=== PATIENT | female | born 1995 | race Caucasian/White ===

== ENCOUNTER 2019-03-25 10:29 | Observation (INO) | payer OTHER ==
[2019-03-25] MEDS ORDERED: LIDOCAINE VISCOUS 2% SOLN 15 ML UDC ONE (11:34)
[2019-03-25] MEDS ORDERED: LIDOCAINE 1% W/EPI 1:100,000 MDV 50 ML VIAL ONE (11:34)
--- NOTE | 2019-03-25 12:56 | EDPHYS ---
Physician Documentation [facility] Name: Blossom Edwards Age: 23 yrs Sex: Female : 1995 Arrival Date: 03/25/2019 Time: 10:32 Bed 13 Private MD: ED Physician Long Zamora HPI: 03/25 12:50 This 23 yrs old Female presents to ER via Ambulatory with complaints of pm1 Possible Peritonsilar Abscess. 12:50 The patient presents with sore throat. The patient describes throat pain as constant, pm1 scratchy. Onset: The symptoms/episode began/occurred 1.5 week(s) ago. Severity of symptoms: in the emergency department the symptoms are actually worse, the past two days. Modifying factors: The patient has had contact with sick at gym, possibly strep. Associated signs and symptoms: Pertinent positives: earache, Sore throat Pertinent negatives fever. Seen at pediatric clinic on Wednesday and was prescribed clindamycin. Seen at [facility] today prior to arrival and given steroid shot at 1000. 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 12:50 Patient took a left over pack of azithromycin last Wednesday with onset of symptoms. [place] pm1 better by Wednesday but her sore throat returned this Wednesday. 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 - Social history:: Smoking status: Patient denies any tobacco usage or history of. - Ebola Screening: : Patient negative for fever greater than or equal to 101.5 degrees Fahrenheit, and additional compatible Ebola Virus Disease symptoms Patient denies exposure to infectious person Patient denies travel to an Ebola-affected area in the 21 days before illness onset No symptoms or risks identified at this time. ROS: 12:50 Constitutional: Negative for fever, chills, and weight loss, Eyes: Negative for injury, pm1 pain, redness, and discharge. 12:50 Neck: Negative for injury, pain, and swelling, Cardiovascular: Negative for chest pain, palpitations, and edema, Respiratory: Negative for shortness of breath, cough, wheezing, and pleuritic chest pain, Abdomen/GI: Negative for abdominal pain, nausea, vomiting, diarrhea, and constipation, Back: Negative for injury and pain, MS/Extremity: Negative for injury and deformity, Skin: Negative for injury, rash, and discoloration. 12:50 ENT: Positive for ear pain, sore throat, Negative for difficulty swallowing, difficulty handling secretions, hoarseness. Exam: 12:50 Constitutional: This is a well developed, well nourished patient who is awake, alert, pm1 and in no acute distress. Head/Face: Normocephalic, atraumatic. Eyes: Pupils equal round and reactive to light, extra-ocular motions intact. Lids and lashes normal. Conjunctiva and sclera are non-icteric and not injected. Cornea within normal limits. Periorbital areas with no swelling, redness, or edema. 12:50 Neck: Trachea midline, no thyromegaly or masses palpated, and no cervical lymphadenopathy. Supple, full range of motion without nuchal rigidity, or vertebral point tenderness. No Meningismus. Chest/axilla: Normal chest wall appearance and motion. Nontender with no deformity. No lesions are appreciated. Cardiovascular: Regular rate and rhythm with a normal S1 and S2. No gallops, murmurs, or rubs. Normal PMI, no JVD. No pulse deficits. Respiratory: Lungs have equal breath sounds bilaterally, clear to auscultation and percussion. No rales, rhonchi or wheezes noted. No increased work of breathing, no retractions or nasal flaring. Abdomen/GI: Soft, non-tender, with normal bowel sounds. No distension or tympany. No guarding or rebound. No evidence of tenderness throughout. Back: No spinal tenderness. No costovertebral tenderness. Full range of motion. Skin: Warm, dry with normal turgor. Normal color with no rashes, no lesions, and no evidence of cellulitis. MS/ Extremity: Pulses equal, no cyanosis. Neurovascular intact. Full, normal range of motion. 12:50 ENT: External ear(s): are unremarkable, Ear canal(s): are normal, TM's: are normal, Nose: is normal, Posterior pharynx: Tonsils: bilaterally enlarged, with erythema, swelling, peritonsillar mass, is noted on left, pooling of secretions, is not appreciated. 12:50 Neuro: Orientation: is normal, Motor: is normal, moves all fours. Vital Signs: 10:47 BP 134 / 81; Pulse 105; Resp 18; Temp 97.8; Pulse Ox 100% on R/A; Weight 69.85 kg; iw Height 5 ft. 4 in. (162.56 cm); Pain 10/10; 10:47 Body Mass Index 26.43 (69.85 kg, 162.56 cm) iw MDM: 10:54 Patient medically screened. pm1 11:09 Data reviewed: vital signs. Data interpreted: Pulse oximetry: on room air is 100 %. pm1 Interpretation: normal. 12:50 Physician consultation: Jessica Becerra MD Admit patient to observation under her pm1 service. Clindamycin 900 mg IV Q8hr, Dexamethasone 8mg IV Q8hr, Diet as tolerated, IV fluids, CBC, CMP. 12:54 Counseling: I had a detailed discussion with the patient and/or guardian regarding: the pm1 historical points, exam findings, and any diagnostic results supporting the discharge/admit diagnosis, the need for further work-up and treatment in the hospital. 13:04 ED course: Patient with steroid IM from clinic prior to arrival at 1000 today, pm1 therefore will start Dexamethasone 8mg at 1600. 03/25 12:56 Order name: CBC with Diff; Complete Time: 14:53 pm1 03/25 12:56 Order name: CMP; Complete Time: 14:34 pm1 03/25 14:49 Order name: CBC Smear Scan; Complete Time: 14:53 EDMS 03/25 15:41 Order name: Urine Dipstick--Ancillary (enter results) eb 03/25 15:41 Order name: Urine --Ancillary (enter results) eb 03/25 15:45 Order name: Urine --Ancillary; Complete Time: 15:48 EDMS 03/25 12:56 Order name: IV Saline Lock; Complete Time: 14:23 pm1 03/25 13:18 Order name: Urine Dipstick-Ancillary (obtain specimen); Complete Time: 14:20 pm1 03/25 13:18 Order name: Urine Test (obtain specimen); Complete Time: 14:20 pm1 03/25 15:45 Order name: Urine Dipstick-Ancillary; Complete Time: 15:48 EDMS Administered Medications: 12:10 Drug: Lidocaine-Epinephrine -1%: (1:100,000) 20 ml {Note: administered by Dr. Becerra.} jl7 Volume: 20 ml; Route: Infiltration; 12:47 Follow up: Response: No adverse reaction jl7 12:47 Not Given (not supplied): [place] - Benzocaine 20 % 1 application Mucous jl7 Membrane in affected area once 14:25 Drug: NS 0.9% 1000 ml Route: IV; Rate: 125 ml/hr; Site: right forearm; ls4 14:25 Drug: Clindamycin 900 mg Route: IVPB; Infused Over: 30 mins; Site: right forearm; ls4 14:55 Follow up: IV Status: Completed infusion; IV Intake: 50ml ls4 Disposition: 18:20 Co-signature as Attending Physician, Long Zamora MD. ma2 Disposition: 03/25/19 12:55 Hospitalization ordered by Jessica Becerra for Observation. Preliminary diagnosis is Peritonsillar abscess. - Bed requested for Telemetry/MedSurg (observation). - Status is Observation. ls4 - Condition is Stable. - Problem is new. - Symptoms have improved. UTI on Admission? No Signatures: Dispatcher [employer] EDMS Nasreen James RN Dalila Ya RN RN iw Marinas, Patrick, NP ENGINE LATHE SET UP OPERATOR TOOL pm1 Jerry Lane RN RN jl7 Long Zamora MD MD ma2 Shelbie Turk RN RN ls4 Corrections: (The following items were deleted from the chart) 15:05 12:55 Hospitalization Ordered by Jessica Becerra MD for Observation. Preliminary dw diagnosis is Peritonsillar abscess. Bed requested for Telemetry/MedSurg (observation). Status is Observation. Condition is Stable. Problem is new. Symptoms have improved. UTI on Admission? No. pm1 16:27 15:05 03/25/2019 12:55 Hospitalization Ordered by Jessica Becerra MD for Observation. ls4 Preliminary diagnosis is Peritonsillar abscess. Bed requested for Telemetry/MedSurg (observation). Status is Observation. Condition is Stable. Problem is new. Symptoms have improved. UTI on Admission? No. dw
--- NOTE | 2019-03-25 12:56 | ER ---
Nurse's Notes [facility] Name: Blossom Edwards Age: 23 yrs Sex: Female : 1995 Arrival Date: 03/25/2019 Time: 10:32 Bed 13 Private MD: Diagnosis: Peritonsillar abscess Presentation: 03/25 10:46 Presenting complaint: Patient states: possible peritonsillar abscess on left side was iw prescribed clindamycin and zpack previously , see at option and sent to ER today. Transition of care: patient was not received from another setting of care. Onset of symptoms was March 22, 2019. Risk Assessment: Do you want to hurt yourself or someone else? Patient reports no desire to harm self or others. Initial Sepsis Screen: Does the patient meet any 2 criteria? No. Patient's initial sepsis screen is negative. Does the patient have a suspected source of infection? No. Patient's initial sepsis screen is negative. Care prior to arrival: None. 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 - Social history:: Smoking status: Patient denies any tobacco usage or history of. - Ebola Screening: : Patient negative for fever greater than or equal to 101.5 degrees Fahrenheit, and additional compatible Ebola Virus Disease symptoms Patient denies exposure to infectious person Patient denies travel to an Ebola-affected area in the 21 days before illness onset No symptoms or risks identified at this time. Screenin:00 Abuse screen: Denies threats or abuse. Denies injuries from another. Nutritional jl7 screening: No deficits noted. Tuberculosis screening: No symptoms or risk factors identified. Fall Risk None identified. Assessment: 11:00 General: Appears in no apparent distress. uncomfortable, Behavior is calm, cooperative, jl7 appropriate for age. Pain: Complains of pain in throat Pain currently is 10 out of 10 on a pain scale. Neuro: Level of Consciousness is awake, alert, obeys commands, Oriented to person, place, time, situation. Cardiovascular: Patient's skin is warm and dry. Respiratory: Airway is patent Respiratory effort is even, unlabored, Respiratory pattern is regular, symmetrical. EENT: Oral mucosa is moist. Good dentition noted. Throat has enlarged tonsils on left. 12:00 Reassessment: Patient appears in no apparent distress at this time. No changes from jl7 previously documented assessment. Patient and/or family updated on plan of care and expected duration. Pain level reassessed. Patient is alert, oriented x 3, equal unlabored respirations, skin warm/dry/pink. 13:00 Reassessment: Patient appears in no apparent distress at this time. No changes from jl7 previously documented assessment. Patient and/or family updated on plan of care and expected duration. Pain level reassessed. Patient is alert, oriented x 3, equal unlabored respirations, skin warm/dry/pink. Vital Signs: 10:47 BP 134 / 81; Pulse 105; Resp 18; Temp 97.8; Pulse Ox 100% on R/A; Weight 69.85 kg; iw Height 5 ft. 4 in. (162.56 cm); Pain 10/10; 10:47 Body Mass Index 26.43 (69.85 kg, 162.56 cm) iw ED Course: 10:32 Patient arrived in ED. rg4 10:47 Triage completed. iw 10:47 Arm band placed on. iw 10:[address] RN is Primary Nurse. jl7 10:53 Obi Fraser NP is PHCP. pm1 10:54 Long Zamora MD is Attending Physician. pm1 11:00 Patient has correct armband on for positive identification. Bed in low position. Call jl7 light in reach. Side rails up X 1. 12:49 Assist provider with I \T\ D: of an abscess on left peritonsillar area Set up I\T\D tray. jl 7 Performed by Jessica Becerra MD Patient tolerated well. 12:54 Jessica Becerra MD is Hospitalizing Provider. pm1 13:30 Initial lab(s) drawn, by va, sent to lab. Urine collected: clean catch specimen, clear. jl7 Inserted saline lock: 22 gauge in right forearm, using aseptic technique. Blood collected. 14:21 Primary Nurse role handed off by Jerry Lane RN jl7 14:25 Shelbie Turk, RN is Primary Nurse. ls4 Administered Medications: 12:10 Drug: Lidocaine-Epinephrine -1%: (1:100,000) 20 ml {Note: administered by Dr. Becerra.} jl7 Volume: 20 ml; Route: Infiltration; 12:47 Follow up: Response: No adverse reaction jl7 12:47 Not Given (not supplied): [place] - Benzocaine 20 % 1 application Mucous jl7 Membrane in affected area once 14:25 Drug: NS 0.9% 1000 ml Route: IV; Rate: 125 ml/hr; Site: right forearm; ls4 14:25 Drug: Clindamycin 900 mg Route: IVPB; Infused Over: 30 mins; Site: right forearm; ls4 14:55 Follow up: IV Status: Completed infusion; IV Intake: 50ml ls4 Intake: 14:55 IV: 50ml; Total: 50ml. ls4 Outcome: 12:55 Decision to Hospitalize by Provider. pm1 16:27 Patient left the ED. ls4 Signatures: Dalila Lock, RN Obi Wright NP LOCKSTITCH FRONT MAKER pm1 Ciera Ramirez rg4 Jerry Lane RN RN jl7 Shelbie Turk RN RN ls4
[2019-03-25] MEDS ORDERED: CLINDAMYCIN 900MG/D5W 900 MG/50 ML IVPB IV ONE (13:58)
[2019-03-25] MEDS ORDERED: NA CHLORIDE 0.9% 1,000 ML ONE (13:58)
[2019-03-25 14:02] LABS: Absolute Lymphocytes (CBC) 0.5 K/uL (0.7-4.9); Basophils % 0.1 % (0-1.3); Hematocrit 41.4 % (36.0-45.0); Lymphocytes % 3.2 % (15.3-44.8); MPV 7.1 fL (7.6-11.3); RBC Red Blood Cell Count 4.71 M/uL (3.86-4.86)
[2019-03-25 14:21] LABS: ALT/SGPT 28 U/L (12-78); AST/SGOT 21 U/L (15-37); Albumin 3.8 g/dL (3.4-5.0); Alkaline Phosphatase 98 U/L (45-117); BUN Blood Urea Nitrogen 5 mg/dL (7-18); Bicarbonate 25 mmol/L (21-32); Bilirubin Total 0.6 mg/dL (0.2-1.0); Glucose Level 112 mg/dL (74-106); Potassium 3.9 mmol/L (3.5-5.1); Protein, Total 9.1 g/dL (6.4-8.2); Sodium Level 138 mmol/L (136-145)
[2019-03-25 14:49] LABS: Blood Morphology Comment NOT SEEN (NOT SEEN); Platelet Estimate ADEQ; Urine White Blood Cell Casts OK
[2019-03-25 15:44] LABS: Urine Blood 1+ (NEG); Urine Glucose NEGATIVE (NEG); Urine Protein 1+ (NEG); Urine pH 5.5 (5.0-7.0)
[2019-03-25] MEDS: NA CHLORIDE 0.9% 1,000 ML IV SCH ×2 (16:31→22:18)
[2019-03-25 16:33] VITALS: BMI 25.0
[2019-03-25] MEDS: dexAMETHasone 10 MG/ML VIAL IV SCH (17:52)
--- NOTE | 2019-03-25 19:53 | CON ---
Date of Consultation: 03/25/2019 Reason For Consultation: Peritonsillar abscess. Chief Complaint: Sore throat. History Of Present Illness: Blossom is a 23-year-old female who presents with a sore throat for appr oximately one and half weeks. She developed a sore throat and was seen by local provider and treated with azithromycin 5-day course and had initial clinical improvement. She then worsened and was seen at an urgent care center on March 22. She underwent testing including screening for mono and streptococcal tonsillitis. She was diagnosed with pharyngitis and treated with clindamycin 300 mg t.i.d. She completed 48 hours of this antibiotic therapy but continued to have significant se isabelle sore throat with left ear pain, difficulty swallowing due to pain and sense of swelling in the t hroat. At the time of her evaluation at Urgent Care, she was also treated with intramuscular steroid . She was evaluated by the emergency room today and the ENT consultation was requested for evaluatio n and treatment of her left possible peritonsillar abscess. Past Medical History: Anxiety and depression. Past Surgical History: section. Allergies: NONE. Current Medications: 1.Oral contraceptive pill. 2.Oral antidepressant. 3.Clindamycin. Social History: Nonsmoker. Her father works as a job coach at the [employer]. Th e patient is currently employed at [employer] in [place]. She is currently single. Review of Systems: Reviewed as documented by the emergency room earlier today and is unchanged. Physical Examination: GENERAL: The patient is in no acute distress. She has no stridor or stertor. She is tolerating her secretions. HEENT: She is atraumatic and normocephalic. Her head and face are symmetric. Her pupils are equal, round, and reactive. Her extraocular movements are intact. Her nares are patent without significan t nasal discharge. Her external ear is unremarkable. The left ear canal is clear and the tympanic m embrane appears intact without evidence of bulging, redness, or effusion. Her lips are unremarkable. She has mild trismus and her maximal incisal opening is approximately 2 cm. The left tonsil is dev iated medially. The uvula is slightly deviated toward the right. The right tonsil is large, but wilhelm s not appear to be significantly displaced. The soft palate does not appear erythematous or particul sukhdev bulging at this point in time. NECK: Soft and supple with mild tender lymphadenopathy, worse on the left. Her respirations are radha n and nonlabored. Laboratory Data: No current labs. No current imaging. Assessment: Tonsillitis, pharyngitis, possible peritonsillar abscess. Plan: Aspiration of peritonsillar abscess and placed under observation for failed outpatient therapy . We will treat patient with IV fluids, IV antibiotics, IV steroids, and reassess tomorrow morning. If the patient has significant clinical improvement, we will plan to discharge her at that time. If she is not significantly clinically improved, we will plan for imaging. I discussed with the emerge ncy room staff regarding her disposition and admission to my service. I recommended clear liquid t and advance as tolerated as no acute additional surgical intervention is planned. SUKHWINDER/PERRI Voice ID: [id number] Report ID: [id number]
--- NOTE | 2019-03-25 19:56 | OP ---
Date of Procedure: 03/25/2019 Surgeon: Jessica Becerra MD Clothes Drier Assembler: None. Procedure: Aspiration; peritonsillar abscess, left. Preoperative Diagnosis: Left peritonsillar abscess. Postoperative Diagnosis: Left peritonsillar abscess. Blood Loss: Nil. Indication For Procedure: Clinical concern for peritonsillar abscess versus advanced tonsillitis. Description Of Procedure: Verbal consent is obtained from the patient. The left soft palate and ant erior pillar are injected with 1% lidocaine with epinephrine, a total of approximately 1 mL is used a fter time for effect. A 1 cc syringe and a 23-gauge needle are used to aspirate around the peritonsi llar area. Four separate aspirations are made along the superior to inferior anterior tonsillar pill ar. A total of approximately 1 mL of pus is aspirated. The procedure is generally well tolerated. After aspiration, the patient is asked to gargle with ice water and bleeding is minimal. After sever al minutes, the patient's oropharynx is reexamined, and she is noted to have no significant worsening in swelling. No significant ecchymosis of the pharynx and appears hemodynamically stable. Complications: None. Specimens: None. Findings: Small peritonsillar abscess. Disposition: Plan for observational status for parental antibiotic therapy. SUKHWINDER/PERRI Voice ID: [id number] Report ID: [id number]
[2019-03-25 21:54] VITALS: O2SAT 99
[2019-03-26] MEDS: NA CHLORIDE 0.9% 1,000 ML IV SCH ×3 (00:31→08:31)
[2019-03-26] MEDS: CLINDAMYCIN PHOSPHATE 900 MG in NA CHLORIDE 0.9% 50 ML IV SCH ×2 (01:25→09:03)
[2019-03-26] MEDS: dexAMETHasone 10 MG/ML VIAL IV SCH ×2 (01:25→09:09)
[2019-03-26 05:32] LABS: Absolute Lymphocytes (CBC) 0.9 K/uL (0.7-4.9); Hematocrit 37.6 % (36.0-45.0); Lymphocytes % 5.8 % (15.3-44.8); MPV 7.3 fL (7.6-11.3); RBC Red Blood Cell Count 4.24 M/uL (3.86-4.86)
[2019-03-26 05:45] LABS: BUN Blood Urea Nitrogen 7 mg/dL (7-18); Bicarbonate 25 mmol/L (21-32); Glucose Level 145 mg/dL (74-106); Potassium 3.8 mmol/L (3.5-5.1); Sodium Level 140 mmol/L (136-145)
[2019-03-26 08:10] LABS: Blood Morphology Comment NOT SEEN (NOT SEEN); Platelet Estimate ADEQ
[2019-03-26 09:19] VITALS: BP 120/67; TEMP 97.4
--- NOTE | 2019-03-26 11:14 | P.PN ---
Subjective Date of Service: 03/26/19 Chief Complaint: sore throat, much improved Subjective: Improving (Patient with resolution of L ear pain, much improved voice and swallowing. Tolerating liquids. Subjective throat swelling is much improved) Physical Examination - Vital Signs Temperature: 97.4 F Blood Pressure: 120/67 Pulse: 94 Respirations: 17 Pulse Ox (%): 98 - Physical Exam General: Alert, In no apparent distress HEENT: Normocephalic, PERRLA, Mucous membr. moist/pink, Other (left tonsil with significant decrease in swelling, trismus much improved) Neck: Supple Respiratory: Normal air movement - Studies Medications List Reviewed: Yes Assessment And Plan - Current Problems (Diagnosis) (1) Peritonsillar abscess Current Visit: Yes Status: Acute - Plan d/c home today. Continue PO Clinda (has Rx at home). Diet as tolerated. FU with Dr Becerra in 1-2 weeks or sooner if worsening. Discharge Plan: Home
[2019-03-27] MEDS ORDERED: NORETHINDRONE A E ESTRADIOL PO SCH (09:00)
[2019-03-27] MEDS ORDERED: VENLAFAXINE HCL XR 37.5MG CAP PO SCH (09:00)
== END 2019-03-26 11:39 | disposition home or self-care (01) ==
LOC: ER 10:29 → ERHOLD 13:07 → 2ND 15:57
PROVIDERS: ADMIT Otolaryngology; ATTEND Otolaryngology
PROC: 0C9PXZX Drainage of Tonsils, External Approach, Diagnostic (ICD-10-PCS; principal; 2019-03-25)
DX: J36 Peritonsillar abscess (principal); F41.8 Other specified anxiety disorders
CPT/HCPCS: 42999; 96365; 85025 ×2; 80048; 36415; 81025; 81003; 80053; 99284; J1100 ×3; S0077; G0378 ×4; J7030 ×3

== ENCOUNTER 2019-03-27 00:29 | Inpatient (IN) | payer OTHER ==
[2019-03-27] MEDS ORDERED: ONDANSETRON 4 MG/2 ML VIAL ONE ×2 (01:32→13:55)
[2019-03-27] MEDS ORDERED: dexAMETHasone 10 MG/ML VIAL ONE ×2 (01:32→12:12)
[2019-03-27] MEDS ORDERED: MORPHINE 4 MG/ML SYR ONE (01:32)
[2019-03-27] MEDS ORDERED: ONDANSETRON 4 MG/2 ML VIAL IV PRN (01:34)
[2019-03-27] MEDS ORDERED: MORPHINE 2 MG/ML SYR IV PRN (01:34)
--- NOTE | 2019-03-27 01:48 | EDPHYS ---
Physician Documentation [facility] Name: Blossom Edwards Age: 23 yrs Sex: Female : 1995 Arrival Date: 03/27/2019 Time: 00:31 Bed 14 Private MD: ED Physician Roberto Bob HPI: 03/27 01:12 This 23 yrs old Female presents to ER via Ambulatory with complaints of jmm Swollen Tonsils. 01:12 The patient presents with sore throat. Onset: The symptoms/episode began/occurred 3 jmm day(s) ago. Modifying factors: The symptoms are alleviated by nothing, the symptoms are aggravated by nothing. Associated signs and symptoms: Pertinent negatives fever. This is a 23 year old female with no chronic medical conditions that presents to the ED with complaints of worsening sore throat. 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 Denies vomiting, denies shortness of breath. . 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 - Social history:: Smoking status: Patient denies any tobacco usage or history of. - Ebola Screening: : No symptoms or risks identified at this time. ROS: 01:12 Constitutional: Negative for fever, chills, and weight loss. jmm 01:12 Cardiovascular: Negative for chest pain, palpitations, and edema, Respiratory: Negative for shortness of breath, cough, wheezing, and pleuritic chest pain. 01:12 ENT: Positive for sore throat. 01:12 All other systems are negative. Exam: 01:12 Head/Face: atraumatic. Eyes: EOMI, no conjunctival erythema appreciated jmm 01:12 Neck: Trachea midline, Supple Chest/axilla: Normal chest wall appearance and motion. Cardiovascular: Regular rate and rhythm. No edema appreciated Respiratory: Normal respirations, no respiratory distress appreciated Abdomen/GI: Non distended, soft Back: Normal ROM Skin: General appearance color normal MS/ Extremity: Moves all extremities, no obvious deformities appreciated, no edema noted to the lower extremities Neuro: Awake and alert, normal gait Psych: Behavior is normal, Mood is normal, Patient is cooperative and pleasant 01:12 Constitutional: The patient appears alert, awake, uncomfortable. 01:12 ENT: Posterior pharynx: erythema, that is moderate, uvular shift noted. Vital Signs: 01:10 BP 134 / 77; Pulse 84; Resp 16 S; Temp 98.6(O); Pulse Ox 100% on R/A; Weight 69.85 kg bb (R); Height 5 ft. 4 in. (162.56 cm) (R); Pain 1010; 01:10 Body Mass Index 26.43 (69.85 kg, 162.56 cm) bb MDM: 01:12 Patient medically screened. [facility] 01:43 Data reviewed: vital signs, nurses notes. Counseling: I had a detailed discussion with alexander the patient and/or guardian regarding: the historical points, exam findings, and any diagnostic results supporting the discharge/admit diagnosis, the need for further work-up and treatment in the hospital. ED course: I discussed the patient with Dr. Lechuga whom accepted admission. I discussed the patient with Dr. Becerra whom will consult on admission. . 03/27 01:24 Order name: CBC with Diff; Complete Time: 02:39 [facility] 03/27 01:24 Order name: CMP; Complete Time: 02:11 [facility] 03/27 01:38 Order name: Basic Metabolic Panel [facility] 03/27 01:38 Order name: Basic Metabolic Panel [facility] 03/27 01:38 Order name: CBC with Automated Diff [facility] 03/27 01:38 Order name: CBC with Automated Diff [facility] 03/27 01:29 Order name: CT Soft Tissue Neck W/contr [facility] 03/27 02:36 Order name: Manual Differential; Complete Time: 02:39 [facility] 03/27 08:10 Order name: Procalcitonin [facility] 03/27 01:24 Order name: Saline Lock; Complete Time: 01:35 [facility] 03/27 01:38 Order name: CONS Pharmacy Consult [facility] 03/27 01:38 Order name: NPO EDMS Administered Medications: 01:42 Drug: morphine 4 mg Route: IVP; Site: right antecubital; 04:00 Follow up: Response: No adverse reaction; Pain is decreased; RASS: Alert and Calm (0) 01:44 Drug: Zofran 4 mg Route: IVP; Site: right antecubital; 04:00 Follow up: Response: No adverse reaction; Nausea is decreased 01:46 Drug: Decadron - Dexamethasone 10 mg Route: IVP; Site: right antecubital; 04:01 Follow up: Response: No adverse reaction 01:53 Drug: Clindamycin 900 mg Route: IVPB; Infused Over: 30 mins; Site: right antecubital; 02:35 Follow up: Response: No adverse reaction; IV Status: Completed infusion 04:00 Follow up: Response: No adverse reaction; IV Status: Completed infusion 03:33 Drug: fentaNYL (PF) 50 mcg Route: IVP; Site: right antecubital; 04:00 Follow up: Response: No adverse reaction; Pain is decreased; RASS: Alert and Calm (0) Disposition: 03/28 07:40 Co-signature as Attending Physician, Roberto Bob MD I agree with the assessment and lebron plan of care. Disposition: 03/27/19 01:47 Hospitalization ordered by Long Lechuga for Inpatient Admission. Preliminary diagnosis is Peritonsillar abscess. - Bed requested for Telemetry/MedSurg (Inpatient). - Status is Inpatient Admission. bp - Condition is Stable. - Problem is an acute exacerbation. - Symptoms have worsened. UTI on Admission? No Signatures: Dispatcher [employer] EDNJ Kavitha Garrett RN RN mw Anderson, Corey, MD MD cha Mickail, Joel, PA PA Radha Wise RN RN bb Habalo, Winsy wh Peltier, Brian RN RN bp Corrections: (The following items were deleted from the chart) 03/27 01:27 01:24 Urine Dipstick-Ancillary ordered. alexander birch 01:52 01:47 Hospitalization Ordered by Long Lechuga MD for Inpatient Admission. Preliminary diagnosis is Peritonsillar abscess. Bed requested for Telemetry/MedSurg (Inpatient). Status is Inpatient Admission. Condition is Stable. Problem is an acute exacerbation. Symptoms have worsened. UTI on Admission? No. marianam 06:48 01:52 03/27/2019 01:47 Hospitalization Ordered by Long Lechuga MD for Inpatient mw Admission. Preliminary diagnosis is Peritonsillar abscess. Bed requested for RUST ER HOLD. Status is Inpatient Admission. Condition is Stable. Problem is an acute exacerbation. Symptoms have worsened. UTI on Admission? No. mw 09:13 06:48 03/27/2019 01:47 Hospitalization Ordered by Long Lechuga MD for Inpatient bp Admission. Preliminary diagnosis is Peritonsillar abscess. Bed requested for Telemetry/MedSurg (Inpatient). Status is Inpatient Admission. Condition is Stable. Problem is an acute exacerbation. Symptoms have worsened. UTI on Admission? No. mw
--- NOTE | 2019-03-27 01:48 | ER ---
Nurse's Notes [facility] Name: Blossom Edwards Age: 23 yrs Sex: Female : 1995 Arrival Date: 03/27/2019 Time: 00:31 Bed 14 Private MD: Diagnosis: Peritonsillar abscess Presentation: 03/27 01:06 Presenting complaint: Patient states: she was discharged yesterday around noon for bb peritonsillar abscess Dr Cm partially drained it and told her the pain would not get any worse but pt states the pain is now 10 times worse than it was yesterday. Transition of care: patient was not received from another setting of care. Onset of symptoms was March 22, 2019. Risk Assessment: Do you want to hurt yourself or someone else? Patient reports no desire to harm self or others. Initial Sepsis Screen: Does the patient meet any 2 criteria? No. Patient's initial sepsis screen is negative. Does the patient have a suspected source of infection? No. Patient's initial sepsis screen is negative. Care prior to arrival: None. 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 - Social history:: Smoking status: Patient denies any tobacco usage or history of. - Ebola Screening: : No symptoms or risks identified at this time. Screenin:00 Abuse screen: Denies threats or abuse. Denies injuries from another. Nutritional wh screening: No deficits noted. Tuberculosis screening: No symptoms or risk factors identified. Fall Risk None identified. Assessment: 01:30 General: Appears in no apparent distress. Behavior is calm, cooperative, appropriate wh for age. Pain: Complains of pain in Sore throat. Neuro: Level of Consciousness is awake, alert, obeys commands, Oriented to person, place, time, situation, Appropriate for age. Cardiovascular: Heart tones S1 S2. Respiratory: Airway is patent Respiratory effort is even, unlabored, Respiratory pattern is regular, symmetrical, Breath sounds are clear bilaterally. GI: Abdomen is flat, non-distended. : No signs and/or symptoms were reported regarding the genitourinary system. EENT: Throat is reddened has enlarged tonsils. Derm: Skin is intact, is healthy with good turgor, Skin is pink, warm \T\ dry. normal. Musculoskeletal: Circulation, motion, and sensation intact. Vital Signs: 01:10 BP 134 / 77; Pulse 84; Resp 16 S; Temp 98.6(O); Pulse Ox 100% on R/A; Weight 69.85 kg bb (R); Height 5 ft. 4 in. (162.56 cm) (R); Pain 10/10; 01:10 Body Mass Index 26.43 (69.85 kg, 162.56 cm) ED Course: 00:31 Patient arrived in ED. cl3 01:08 Triage completed. bb 01:09 Johann Mcclendon PA is PHCP. jmm 01:09 Roberto Bob MD is Attending Physician. jmm 01:10 Arm band placed on Patient placed in an exam room, on a stretcher, on pulse oximetry. bb Family accompanied patient. 01:17 Candice Hui is Primary Nurse. 01:30 Patient has correct armband on for positive identification. Bed in low position. Call light in reach. Side rails up X 1. Pulse ox on. NIBP on. 01:31 Inserted saline lock: 20 gauge in right antecubital area, using aseptic technique. mw2 Blood collected. 01:47 Long Lechuga MD is Hospitalizing Provider. [facility] 02:30 No provider procedures requiring assistance completed. Patient admitted, IV remains in place. Administered Medications: 01:42 Drug: morphine 4 mg Route: IVP; Site: right antecubital; 04:00 Follow up: Response: No adverse reaction; Pain is decreased; RASS: Alert and Calm (0) 01:44 Drug: Zofran 4 mg Route: IVP; Site: right antecubital; 04:00 Follow up: Response: No adverse reaction; Nausea is decreased 01:46 Drug: Decadron - Dexamethasone 10 mg Route: IVP; Site: right antecubital; 04:01 Follow up: Response: No adverse reaction 01:53 Drug: Clindamycin 900 mg Route: IVPB; Infused Over: 30 mins; Site: right antecubital; 02:35 Follow up: Response: No adverse reaction; IV Status: Completed infusion 04:00 Follow up: Response: No adverse reaction; IV Status: Completed infusion 03:33 Drug: fentaNYL (PF) 50 mcg Route: IVP; Site: right antecubital; 04:00 Follow up: Response: No adverse reaction; Pain is decreased; RASS: Alert and Calm (0) Outcome: 01:47 Decision to Hospitalize by Provider. alexander 02:30 Admitted to ER Hold. Please see [facility] for further documentation. 02:30 Condition: stable 02:30 Instructed on the need for admit. 09:13 Patient left the ED. bp Signatures: Johann Mcclendon PA PA jmm Ballard, Brenda, RN RN Candice Jasso Joel Harden RN RN Gifty Adamson mw2 Edward Solano cl3
[2019-03-27] MEDS ORDERED: CLINDAMYCIN 900MG/D5W 900 MG/50 ML IVPB IV ONE (01:52)
[2019-03-27 01:55] LABS: Absolute Lymphocytes (CBC) 1.8 K/uL (0.7-4.9); Basophils % 0.1 % (0-1.3); Lymphocytes % 7.3 % (15.3-44.8); MPV 7.6 fL (7.6-11.3); RBC Red Blood Cell Count 4.38 M/uL (3.86-4.86)
[2019-03-27] MEDS ORDERED: Levofloxacin500mg IV 500 MG/100 ML BAG IV SCH (02:00)
[2019-03-27] MEDS: NA CHLORIDE 0.9% 1,000 ML IV SCH ×3 (02:00→22:59)
[2019-03-27 02:06] LABS: ALT/SGPT 24 U/L (12-78); AST/SGOT 16 U/L (15-37); Albumin 3.4 g/dL (3.4-5.0); Alkaline Phosphatase 90 U/L (45-117); BUN Blood Urea Nitrogen 7 mg/dL (7-18); Bicarbonate 27 mmol/L (21-32); Bilirubin Total 0.2 mg/dL (0.2-1.0); Glucose Level 110 mg/dL (74-106); Potassium 3.3 mmol/L (3.5-5.1); Protein, Total 8.3 g/dL (6.4-8.2); Sodium Level 144 mmol/L (136-145)
[2019-03-27 02:35] LABS: Blood Morphology Comment NOT SEEN (NOT SEEN); Platelet Estimate ADEQ
[2019-03-27] MEDS ORDERED: FENTANYL CITR 100 MCG/2 ML ONE ×2 (03:28→12:12)
[2019-03-27] MEDS ORDERED: NA CHLORIDE 0.9% 1,000 ML ONE ×2 (03:28→14:12)
[2019-03-27] MEDS ORDERED: Levofloxacin500mg IV 500 MG/100 ML BAG IV ONE (03:28)
[2019-03-27] MEDS ORDERED: NA CHLORIDE 0.9% 100 ML IV ONE (05:26)
[2019-03-27] MEDS ORDERED: AMPICILLIN/SULBACTAM 3GM/VIAL ONE (05:26)
[2019-03-27] MEDS: AMPICILLIN/SULBACT 3 GM in NA CHLORIDE 0.9% 100 ML IVPB SCH ×4 (05:28→22:58)
--- NOTE | 2019-03-27 05:54 | P.HP ---
Certification for Inpatient Patient admitted to: Inpatient With expected LOS: >2 Midnights Patient will require the following post-hospital care: None Practitioner: I am a practitioner with admitting privileges, knowledge of patient current condition, hospital course, and medical plan of care. Services: Services provided to patient in accordance with Admission requirements found in Title 42 Section 412.3 of the Code of Federal Regulations Patient History Date of Service: 03/27/19 Reason for admission: Tonsillar abscess History of Present Illness: Patient is a 23-year-old female who was seen in the hospital for a tonsillar abscess a couple of days ago. She apparently had an incision and debridement. She was discharged home on IV antibiotics. She comes back into the hospital with feeling worse. She continues to have a 2cm x 2cm x 2cm tonsillar abscess. Patient had retropharyngeal extension of the abscess. Airway is displaced to the right. ENT will be notified. They have accepted patient on consultation. Will contact them in a.m.. Keep patient NPO. Anticipate patient going to the OR in a.m.. Continue with broad-spectrum IV antibiotic coverage. She may need to go to the intensive care unit depending on how she is doing hemodynamically. Also will need to continue monitoring respiratory status very cautiously. Allergies No Known Allergies Allergy (Verified 03/27/19 03:37) Home Medications: Norethindrone A-E Estradiol [Gildess] 1 each PO DAILY 03/25/19 Venlafaxine HCl [Venlafaxine HCl ER] 37.5 mg PO DAILY 03/25/19 - Past Medical/Surgical History Has patient received pneumonia vaccine in the past: No Diabetic: No -: Anxiety -: On control pills -: CSection 2012 - Family History Mother Medical History: Hypertension Father Medical History: Hypertension - Social History Smoking Status: Never smoker Alcohol use: Yes CD- Drugs: No Caffeine use: No Place of Residence: Home Review of Systems 10-point ROS is otherwise unremarkable Physical Examination - Vital Signs Temperature: 98.4 F Blood Pressure: 118/68 Pulse: 71 Respirations: 18 Pulse Ox (%): 98 - Physical Exam General: Alert, In no apparent distress, Oriented x3 HEENT: Atraumatic, PERRLA, Mucous membr. moist/pink, EOMI, Sclerae nonicteric Neck: Supple, 2+ carotid pulse no bruit, Other (Tenderness in the anterior cervical lymphadenopathy region), Without JVD or thyroid abnormality, LAD Respiratory: Clear to auscultation bilaterally, Normal air movement Cardiovascular: Regular rate/rhythm, Normal S1 S2, No murmurs Gastrointestinal: Normal bowel sounds, Soft and benign, Non-distended, No tenderness Musculoskeletal: No clubbing, No swelling, No tenderness Integumentary: No rashes Neurological: Normal gait, Normal speech, Normal strength at 5/5 x4 extr, Normal tone, Cranial nerves 3-12 intact, Normal affect Lymphatics: No axilla or inguinal lymphadenopathy - Studies Laboratory Data (last 24 hrs) 03/27/19 01:33: Sodium 144, Potassium 3.3 L, BUN 7, Creatinine 0.77, Glucose 110 H, Total Bilirubin 0.2, AST 16, ALT 24, Alkaline Phosphatase 90 03/27/19 01:33: WBC 24.2 H* D, Hgb 13.3, Hct 39.0, Plt Count 374 Assessment & Plan - Problems (Diagnosis) (1) Retropharyngeal and parapharyngeal abscess Current Visit: Yes Status: Acute (2) Peritonsillar abscess Current Visit: No Status: Acute - Plan 1. Continue with broad IV antibiotic 2. Continue with monitoring airway and hemodynamic 3. ENT consultation 4. Gentle IV hydration 5. Monitor CBC 6. Strict blood sugar monitoring 7. Pain control 8. GI and DVT prophylaxis Discharge Plan: Home Plan to discharge in: Greater than 2 days - Advance Directives Does patient have a Living Will: No Does patient have a Durable POA for Healthcare: No - Code Status/Comfort Care Code Status Assessed: Yes Code Status: Full Code Critical Care: No Time Spent Managing PTS Care (In Minutes): 50
[2019-03-27] MEDS ORDERED: VANCOMYCIN 1.5 GM in NA CHLORIDE 0.9% 500 ML IVPB SCH (06:00)
[2019-03-27] MEDS ORDERED: VANCOMYCIN 1 GM/VIAL ONE (06:23)
[2019-03-27] MEDS ORDERED: NA CHLORIDE 0.9% 250 ML ONE (06:24)
--- NOTE | 2019-03-27 07:56 | P.CNS ---
Date of Consult: 03/27/19 Patient know to me from earlier this weekend. She presented on Wednesday and I performed a needle aspiration of the L peritonsillar abscess (about 1ml purulence obtained) and placed her under obs with IV Clinda and Dex. By Wednesday morning, her swelling, pain and swallowing were much improved and she was discharged home to resume her PO Clindamycin. She did well until about 8PM and developed recurrence and worsening of the pain and swelling in the throat and left ear pain. She came to the ER and the staff contacted me at approximately 1 :30AM. Due to worsening, I recommended CT neck with contrast. NAD, VSS, sleeping. Moderately muffled/hot potato voice, worse compared to yesterday morning. Mild trismus, L OP edema and medialization of the left tonsil. CT images and radiologist report are reviewed and show a 2cm L peritonsillary abscess. WBC with worsening leukocytosis compared to yester and Saturdays values Assessment: left peritonsillar abscess, recurrent vs persistent. Plan: Discussed with patient regarding need for formal I&D rather than needle aspiration in order to ensure complete drainage. She feels she would not tolerate this awake given the degree of discomfort from the needle aspiration. Will plan for proceedure under GA today around lunchtime due to OR availability.
[2019-03-27] MEDS ORDERED: VANCOMYCIN 1.5 GM in NA CHLORIDE 0.9% 500 ML IVPB ONE (08:00)
[2019-03-27 09:50] VITALS: BMI 25.8
--- NOTE | 2019-03-27 12:09 | P.PN ---
Subjective Date of Service: 03/27/19 Primary Care Provider: unknown Chief Complaint: Tonsillar abscess Subjective: Doing well Physical Examination - Vital Signs Temperature: 97.5 F Blood Pressure: 114/83 Pulse: 68 Respirations: 15 Pulse Ox (%): 97 - Physical Exam General: Alert, In no apparent distress, Cooperative HEENT: Atraumatic Neck: Supple Respiratory: Clear to auscultation bilaterally, Normal air movement Cardiovascular: Normal pulses, Regular rate/rhythm - Studies Laboratory Data (last 24 hrs) 03/27/19 01:33: Sodium 144, Potassium 3.3 L, BUN 7, Creatinine 0.77, Glucose 110 H, Total Bilirubin 0.2, AST 16, ALT 24, Alkaline Phosphatase 90 03/27/19 01:33: WBC 24.2 H* D, Hgb 13.3, Hct 39.0, Plt Count 374 Medications List Reviewed: Yes Assessment & Plan Discharge Plan: Home Plan to discharge in: 48 Hours Physician Review Additional Text: Impression: Left peritonsillar abscess, recurrent Plan: Continue with IV antibiotics. Spoke to ENT. ENT plans for surgery for today. Anticipate improvement in the next 48 hours. Time Spent Managing Pts Care (In Minutes): 55
[2019-03-27] MEDS ORDERED: TRAMADOL HCL 50 MG TAB PO PRN (12:10)
[2019-03-27] MEDS ORDERED: MIDAZOLAM HCL 2 MG/2 ML INJ ONE (12:12)
[2019-03-27] MEDS ORDERED: propofoL 200 MG/20 ML VIAL IV ONE (12:12)
[2019-03-27] MEDS ORDERED: LIDOCAINE 2% MPF 5 ML VIAL ONE (12:12)
[2019-03-27] MEDS ORDERED: ROCURONIUM 50 MG/5 ML VIAL IV ONE (12:13)
[2019-03-27] MEDS ORDERED: BUPIVACA 0.5%/EPI 0.0005%/PF 10 ML VIAL ONE (12:23)
--- NOTE | 2019-03-27 12:24 | RAD REPORT ---
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 Coronal and sagittal reformatted images were provided. This exam was performed according to our departmental dose-optimization program, which includes autom ated exposure control, adjustment of the mA and/or kV according to patient size and/or use of iterati ve reconstruction technique. COMPARISON: None available for comparison FINDINGS: Oropharynx: Asymmetric enlargement of the left palatine tonsil. Peripherally thickened and enhancing collection measuring 2.5 x 2 x 2.1 cm. Adjacent left parapharyngeal edema. The airway is m ildly effaced and displaced to the right. Hypopharynx: Unremarkable Larynx: Unremarkable. Normal epiglottis. Trachea: Unremarkable Retropharyngeal space: Left retropharyngeal edema. Submandibular/parotid glands: Unremarkable. Normal in size. Thyroid: Unremarkable Bones/joints: Unremarkable Soft tissues: Unremarkable Vessels: Unremarkable Lymph nodes: Enlarged cervical lymph nodes on the left measuring up to 16 mm in short axis. Paranasal sinuses: Well-aerated Mastoid air cells: Well-aerated Lung apices: Unremarkable as visualized Mediastinum: Unremarkable as visualized IMPRESSION: Left palatine tonsillar abscess measuring approximately 2.5 x 2 x 2.1 cm. Adjacent left parapharyngeal edema with retropharyngeal extension. The airway is mildly effaced and displaced to th e right. THIS REPORT CONTAINS FINDINGS THAT MAY BE CRITICAL TO PATIENT CARE: The findings were verbally discu ssed via telephone conference with Dr. Bob on 03/27/2019 3:35 AM MISSILE PAD MECHANIC. The results were acknowledg ed and understood. Electronically signed by: Jordi Briseno MD 03/27/2019 3:36 AM MISSILE PAD MECHANIC Due to temporary technical issues with the PACS/Fluency reporting system, reports are being signed by the in house radiologist as a courtesy to ensure prompt reporting. The interpreting radiologist is maciej saravialy responsible for the content of the report.
--- NOTE | 2019-03-27 13:04 | P.BOP ---
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
[2019-03-27] MEDS: HYDROMORPHONE HCL 2 MG/ML inj ONE ×4 (13:23→13:55)
[2019-03-27] MEDS: MEPERIDINE HCL 25 MG/0.5 ML ONE ×2 (13:35→13:40)
[2019-03-27] MEDS: HYDROCODONE/APAP 7.5/325 MG TAB PO PRN (17:46)
[2019-03-27] MEDS ORDERED: VANCOMYCIN 1.25 GM in NA CHLORIDE 0.9% 250 ML IVPB SCH (18:00)
[2019-03-27] MEDS ORDERED: DIPHENHYDRAMINE 25 MG TAB/CAP PO ONE (22:34)
[2019-03-27] MEDS: FAMOTIDINE 20 MG TAB PO SCH (22:58)
--- NOTE | 2019-03-27 23:15 | OP ---
Date of Procedure: 03/27/2019 Surgeon: Jessica Becerra MD Dock Associate: None. Preoperative Diagnosis: Left peritonsillar abscess. Postoperative Diagnosis: Left peritonsillar abscess. Procedure: Incision and drainage of left peritonsillar abscess under general anesthesia. Indication For Procedure: Ms. Edwards presented with recurrent or persistent sore throat, ear pain and dysphagia and odynophagia despite outpatient antibiotics. She underwent a needle aspiration of her left peritonsillar abscess on the 25 of March and did well initially, but approximately 36 hours after the aspiration, her symptoms worsened, and she came back to the emergency room. A CT scan of the neck was performed demonstrating a left peritonsillar abscess. The risks, benefits, alternatives to the procedure were discussed with the patient including the need for formal incision rather than pure aspiration. The patient did not feel she would tolerate this under local anesthetic at the bedside and opted for procedure under general anesthesia. Description Of Procedure: Patient was brought to the operating room. She was placed under general anesthesia via oral endotracheal tube. The head of bed was turned 90 degrees. The neck was extended and a head drape was applied. The McIvor mouth gag was placed for exposure of the oropharynx. Both tonsils were noted to be relatively large. There was some moderate tonsillitis and tonsil stones, as well as swelling and bulging of the left soft palate. A 15- blade scalpel was used to make a 1 cm incision in the anterior tonsillar pillar just lateral to the tonsil. Direct pressure was applied to the incision for control of bleeding. The tonsil clamp was then used to explore into the deep lateral inferior and medial aspects without any evidence of purulence. Finally , the tonsil clamp was directed superiorly and the abscess cavity was entered bluntly with the tonsil clamp, resulting in significant purulent drainage into the oral cavity. This was collected for an aerobic and anaerobic culture to further direct antibiotic therapy. The abscess cavity was then probed using the tonsil clamp to break up any septations and thoroughly irrigated with approximately 100 cc of cold sterile saline. A small amount of electrocautery was used at the superior aspect where there was oozing from the mucosal edge. Direct pressure was applied to aid in control of oozing from the severely inflamed tissues. The area around the incision was then injected with 0.5% Marcaine with epinephrine to aid in postoperative pain control. After several aliquots of irrigation, the irrigation fluid ran clear and there was no further evidence of additional abscess pocket. Direct pressure was applied to the incision for several minutes to control bleeding and the oropharynx was thoroughly suctioned. An orogastric tube was passed to the stomach for removal of contents, which was minimal. A red rubber catheter was then passed through the bilateral nasal cavity for suctioning of any blood, pus, and mucus from the nasopharynx. The McIvor mouth gag was then released from suspension and removed. There was no evidence of damage to the lips tongue teeth, and the mandible was mobile. The patient was then returned to care of anesthesia for awakening and extubation in the operating room, which proceeded without difficulty. Complications: None. Disposition: Due to failed medical therapy, it is recommended the patient remain in the hospital for 24-48 hours in order to administer parental antibiotics and ensure clinical improvement prior to discharge. SUKHWINDER/PERRI Voice ID: [id number] Report ID: [id number] JEANIE
[2019-03-28] MEDS: AMPICILLIN/SULBACT 3 GM in NA CHLORIDE 0.9% 100 ML IVPB SCH ×4 (06:00→23:31)
[2019-03-28 06:27] LABS: BUN Blood Urea Nitrogen 6 mg/dL (7-18); Bicarbonate 28 mmol/L (21-32); Glucose Level 83 mg/dL (74-106); Magnesium 2.1 mg/dL (1.8-2.4); Sodium Level 141 mmol/L (136-145)
[2019-03-28 06:29] LABS: Basophils % 0.1 % (0-1.3); Hematocrit 33.5 % (36.0-45.0); Lymphocytes % 17.1 % (15.3-44.8); MPV 7.5 fL (7.6-11.3); RBC Red Blood Cell Count 3.74 M/uL (3.86-4.86)
[2019-03-28] MEDS: HYDROCODONE/APAP 7.5/325 MG TAB PO PRN ×2 (07:27→13:08)
[2019-03-28] MEDS: FAMOTIDINE 20 MG TAB PO SCH ×2 (12:02→20:43)
[2019-03-28] MEDS ORDERED: DIPHENHYDRAMINE 25 MG TAB/CAP PO PRN (16:06)
--- NOTE | 2019-03-28 16:08 | P.PN ---
Subjective Date of Service: 03/28/19 Primary Care Provider: unknown Chief Complaint: Tonsillar abscess Subjective: Improving, Other (Patient did report some itching last night after taking pain medication.) Physical Examination - Vital Signs Temperature: 97.1 F Blood Pressure: 114/81 Pulse: 59 Respirations: 15 Pulse Ox (%): 97 - Physical Exam General: Alert HEENT: Other (Erythema to the left pharyngeal area still slightly edematous but improved) Neck: Supple Respiratory: Clear to auscultation bilaterally, Normal air movement Cardiovascular: Normal pulses, Regular rate/rhythm Neurological: Normal speech, Normal strength at 5/5 x4 extr, Normal tone - Studies Medications List Reviewed: Yes Assessment & Plan Discharge Plan: Home Plan to discharge in: 24 Hours Physician Review Additional Text: Impression: Left peritonsillar abscess, recurrent status post I and D Itching likely related to medication Plan: Continue with IV antibiotic. Patient reported itching last night and again today after pain medication. Will discontinue all pain medication. Will provide ibuprofen or Tylenol as needed for pain. Will need to monitor make sure this is not related to antibiotic. Will continue monitor Overnite. Encourage ambulation. Will provide DVT prophylaxis-Lovenox. Will give Pepcid and Benadryl at this time. Spoke with ENT. Anticipate discharge tomorrow. Culture results still negative. Time Spent Managing Pts Care (In Minutes): 55
[2019-03-28] MEDS: ENOXAPARIN 40 MG/0.4 ML SQ SCH (17:00)
[2019-03-28] MEDS: IBUPROFEN 400 MG TAB PO PRN (17:28)
[2019-03-28 23:17] VITALS: O2SAT 98
[2019-03-29] MEDS: AMPICILLIN/SULBACT 3 GM in NA CHLORIDE 0.9% 100 ML IVPB SCH ×3 (05:47→17:07)
[2019-03-29] MEDS: IBUPROFEN 400 MG TAB PO PRN ×3 (05:54→20:42)
[2019-03-29 06:03] LABS: Absolute Lymphocytes (CBC) 2.3 K/uL (0.7-4.9); Basophils % 0.1 % (0-1.3); Hematocrit 35.4 % (36.0-45.0); Lymphocytes % 22.3 % (15.3-44.8); MPV 7.4 fL (7.6-11.3); RBC Red Blood Cell Count 3.95 M/uL (3.86-4.86)
[2019-03-29 06:20] LABS: BUN Blood Urea Nitrogen 7 mg/dL (7-18); Bicarbonate 30 mmol/L (21-32); Glucose Level 83 mg/dL (74-106); Magnesium 2.1 mg/dL (1.8-2.4); Potassium 3.6 mmol/L (3.5-5.1); Sodium Level 141 mmol/L (136-145)
[2019-03-29] MEDS: FAMOTIDINE 20 MG TAB PO SCH ×2 (08:10→20:43)
[2019-03-29] MEDS: ACETAMINOPHEN 500 MG TAB PO PRN ×2 (08:11→16:07)
--- NOTE | 2019-03-29 11:34 | P.PN ---
Subjective Date of Service: 03/29/19 Primary Care Provider: unknown Chief Complaint: Tonsillar abscess Subjective: Other (This morning she had more pain to the will pharyngeal area. ENT evaluated patient and did further debridement at bedside.) Physical Examination - Vital Signs Temperature: 97.0 F Blood Pressure: 115/83 Pulse: 76 Respirations: 15 Pulse Ox (%): 98 - Physical Exam General: Alert HEENT: Atraumatic, Other (Still with erythema and edema to Left pharynx) Neck: Supple Respiratory: Clear to auscultation bilaterally, Normal air movement - Studies Medications List Reviewed: Yes Assessment & Plan Discharge Plan: Home Plan to discharge in: 48 Hours Physician Review Additional Text: Impression: Left peritonsillar abscess, recurrent status post I and D Itching likely related to medication Plan: Left peritonsillar abscess, recurrent status post I and D: Patient had further debridement at bedside today. More drainage and pus removed. Case discussed at length with ENT. So for cultures negative. White count improved. Continue with IV Unasyn. ENT plans to re-evaluate over the next 1-2 days with recurrent possible bedside debridements. Anticipate discharge likely within 2 days but will need ENT clearance. I will turn the service over to the hospital seen tomorrow. I will go over the plan of care with them. Itching likely related to medication: No more itching noted. This was likely related to pain medication. This has been discontinued. Time Spent Managing Pts Care (In Minutes): 55
[2019-03-29] MEDS: ENOXAPARIN 40 MG/0.4 ML SQ SCH (16:02)
[2019-03-30] MEDS: AMPICILLIN/SULBACT 3 GM in NA CHLORIDE 0.9% 100 ML IVPB SCH ×2 (00:48→05:11)
[2019-03-30 04:38] LABS: Absolute Lymphocytes (CBC) 2.5 K/uL (0.7-4.9); Basophils % 0.2 % (0-1.3); Hematocrit 38.1 % (36.0-45.0); Lymphocytes % 33.3 % (15.3-44.8); MPV 7.6 fL (7.6-11.3); RBC Red Blood Cell Count 4.31 M/uL (3.86-4.86)
[2019-03-30 04:48] LABS: BUN Blood Urea Nitrogen 8 mg/dL (7-18); Bicarbonate 30 mmol/L (21-32); Glucose Level 88 mg/dL (74-106); Magnesium 2.3 mg/dL (1.8-2.4); Potassium 3.6 mmol/L (3.5-5.1); Sodium Level 141 mmol/L (136-145)
[2019-03-30 05:30] VITALS: TEMP 97.1
[2019-03-30 08:17] VITALS: BP 118/78
[2019-03-30] MEDS: FAMOTIDINE 20 MG TAB PO SCH (08:46)
[2019-03-30] MEDS: IBUPROFEN 400 MG TAB PO PRN (08:46)
--- NOTE | 2019-03-30 11:07 | P.DS ---
Admission Date: 03/27/19 Discharge Date: 03/30/19 Primary Care Provider: unknown Disposition: ROUTINE DISCHARGE Reason for Admission: Tonsillar abscess Consultations: ENT - Problems (1) Peritonsillar abscess Status: Acute (2) Retropharyngeal and parapharyngeal abscess Status: Acute Brief History of Present Illness: Patient is a 23-year-old female who was seen in the hospital for a tonsillar abscess a couple of days ago. She apparently had an incision and debridement. She was discharged home on IV antibiotics. She comes back into the hospital with feeling worse. She continues to have a 2cm x 2cm x 2cm tonsillar abscess. Patient had retropharyngeal extension of the abscess. Airway is displaced to the right. ENT will be notified. They have accepted patient on consultation. Will contact them in a.m.. Keep patient NPO. Anticipate patient going to the OR in a.m.. Continue with broad-spectrum IV antibiotic coverage. She may need to go to the intensive care unit depending on how she is doing hemodynamically. Also will need to continue monitoring respiratory status very cautiously. Hospital Course: ENT was consulted on admission due to significant swelling and abscess. She underwent I&D of peritonsillar abscess. Culture was without any growth, probably collected after initiation of antibiotics. Patient's symptoms did improve and she remained hemodynamically stable for discharge. She has been discharged on oral antibiotics, to follow up with ENT in 2 weeks. Vital Signs/Physical Exam: Temp Pulse Resp BP Pulse Ox 97.1 F 80 16 118/78 99 03/30/19 08:00 03/30/19 08:00 03/30/19 08:00 03/30/19 08:00 03/30/19 08:00 General: Alert, In no apparent distress HEENT: Atraumatic, PERRLA, Other (Mild pharyngeal erythema), EOMI Neck: Supple, JVD not distended Respiratory: Clear to auscultation bilaterally, Normal air movement Cardiovascular: Regular rate/rhythm, Normal S1 S2 Gastrointestinal: Normal bowel sounds, No tenderness Musculoskeletal: No tenderness Integumentary: No rashes Neurological: Normal speech, Normal tone, Normal affect Lymphatics: No axilla or inguinal lymphadenopathy Laboratory Data at Discharge: WBC 7.5 K/uL (4.3-10.9) D 03/30/19 03:31 Hgb 13.3 g/dL (12.0-15.0) 03/30/19 03:31 Hct 38.1 % (36.0-45.0) 03/30/19 03:31 Plt Count 355 K/uL (152-406) D 03/30/19 03:31 Sodium 141 mmol/L (136-145) 03/30/19 03:31 Potassium 3.6 mmol/L (3.5-5.1) 03/30/19 03:31 BUN 8 mg/dL (7-18) 03/30/19 03:31 Creatinine 0.64 mg/dL (0.55-1.3) 03/30/19 03:31 Glucose 88 mg/dL (74-106) 03/30/19 03:31 Magnesium 2.3 mg/dL (1.8-2.4) 03/30/19 03:31 Total Bilirubin 0.2 mg/dL (0.2-1.0) 03/27/19 01:33 AST 16 U/L (15-37) 03/27/19 01:33 ALT 24 U/L (12-78) 03/27/19 01:33 Alkaline Phosphatase 90 U/L (45-117) 03/27/19 01:33 Home Medications: Norethindrone A-E Estradiol [Gildess] 1 each PO DAILY 03/25/19 Venlafaxine HCl [Venlafaxine HCl ER] 37.5 mg PO DAILY 03/25/19 Amoxicillin/Potassium Clav [Augmentin 875-125 Tablet] 1 each PO BID #28 tablet 03/30/19 Lactobacillus Acidophilus [Probiotic Acidophilus] 1 each PO TID #90 tablet 03/30 New Medications: Amoxicillin/Potassium Clav [Augmentin 875-125 Tablet] 1 each PO BID #28 tablet Lactobacillus Acidophilus [Probiotic Acidophilus] 1 each PO TID #90 tablet Patient Discharge Instructions: Follow up with ENT in 2 weeks. Complete antibiotics and probiotics as ordered. Diet: Regular Activity: Ad jeremy Followup: Jessica Becerra MD [ACTIVE - CAN ADMIT] - 1-2 Weeks (call to schedule follow up appointment ) NONE,NONE [Primary Care Provider] - 1-2 Weeks (call to schedule follow up appointment )
--- NOTE | 2019-03-31 07:45 | P.PN ---
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 Was doing well yesterday but due to complexity and multiple Abx and recurrances of symptoms, decision was made to keep patient overnight and assess today. I saw the patient about 7:45AM and she noted worsening of swallowing, pain in the throat and recurrance of L ear pain around 4AM. Voice is more muffled/hot potato voice. Moderate trimus, L tonsil deviated medially, L SP swelling/bulging with incision not draining spontaneously. After verbal consent, at the bedside, a tonsil clamp is used to probe the prior incision site and a large of amount of pus is noted to extrude. The patient is allowed to spit and rinse her mouth and the probing is repeat 3 more times until there is no further pus noted. Due to the findings, will monitor closely, continue IV Abx and diet for now. Approx 1200 Patient is re-examined. Symptoms mildly improved compared to AM. The L tonsillar abscess is probed with tonsil clamp and moderate purulence is noted. Continue current plan of care. Approx 1900 Patient is re-examined. Symptoms improved compared to afternoon. The L tonsillar abscess is probed with tonsil clamp but no purlence/drainage is noted. Continue current plan of care tonight. If symptoms significantly improved/not worsening, will D/C in AM. If symptoms worse/recur in the AM or over the next 1-2 weeks, I would recommend "hot" tonsillectomy. Discussed with patient and her parents.
--- NOTE | 2019-03-31 07:46 | P.PN ---
Date of Service: 03/30/19 Approx 0791 Patient states symptoms not worse compared to last night, no ear pain. Cali PO NAD, Alert, mild trismus. L tonsil mildly medially deviated. Incision not probed today. Ok for d/c home wiht PO Abx, diet as tolerated. FU with [facility] in 4-6 weeks or contact office if symptoms worsen prior to that.
== END 2019-03-30 12:05 | disposition home or self-care (01) | DRG 134 ==
LOC: ER 00:29 → ERHOLD 01:34 → 4TH 09:07
PROVIDERS: ADMIT Hospitalist; ATTEND Hospitalist
PROC: 0C9P0ZZ Drainage of Tonsils, Open Approach (ICD-10-PCS; principal; 2019-03-27 12:00)
DX: J36 Peritonsillar abscess (principal); L29.9 Pruritus, unspecified; T40.605A Adverse effect of unspecified narcotics, initial encounter
CPT/HCPCS: 36415; 70491; 80048; 80053; 83735; 84145; 85025; 87070; 87075; 87205; 96365; 96375; 99285; J0295; J1100; J1170; J1650; J2175; J2250; J2405; J2704; J3010; J7030; Q9967

== ENCOUNTER 2019-04-13 18:42 | Observation (INO) | payer OTHER ==
[2019-04-13] MEDS ORDERED: NA CHLORIDE 0.9% 0 ML ONE (20:15)
[2019-04-13] MEDS ORDERED: CLINDAMYCIN IV 150 MG/ML (6 mL) VIAL ONE (20:16)
[2019-04-13] MEDS ORDERED: NA CHLORIDE 0.9% 50 ML ONE (20:22)
[2019-04-13 20:31] LABS: Absolute Lymphocytes (CBC) 1.2 K/uL (0.7-4.9); Basophils % 0.3 % (0-1.3); Hematocrit 39.4 % (36.0-45.0); Lymphocytes % 12.1 % (15.3-44.8); MPV 7.5 fL (7.6-11.3); RBC Red Blood Cell Count 4.39 M/uL (3.86-4.86)
[2019-04-13] MEDS: dexAMETHasone 10 MG/ML VIAL IV SCH (20:37)
[2019-04-13] MEDS: CLINDAMYCIN INJ 900 MG in NA CHLORIDE 0.9% 50 ML IV SCH (20:38)
[2019-04-13 20:42] LABS: BUN Blood Urea Nitrogen 8 mg/dL (7-18); Bicarbonate 27 mmol/L (21-32); Glucose Level 86 mg/dL (74-106); Potassium 4.3 mmol/L (3.5-5.1); Sodium Level 138 mmol/L (136-145)
[2019-04-13] MEDS: D5.45NS W/KCL 20MEQ 20 MEQ/1,000 ML BAG IV SCH (20:56)
[2019-04-14 00:43] VITALS: BMI 25.8
[2019-04-14] MEDS ORDERED: CLINDAMYCIN IV 150 MG/ML (6 mL) VIAL ONE (00:56)
[2019-04-14] MEDS ORDERED: NA CHLORIDE 0.9% 50 ML ONE (00:57)
[2019-04-14] MEDS: CLINDAMYCIN INJ 900 MG in NA CHLORIDE 0.9% 50 ML IV SCH ×2 (01:00→09:44)
[2019-04-14] MEDS: dexAMETHasone 10 MG/ML VIAL IV SCH ×2 (01:05→09:45)
[2019-04-14] MEDS: D5.45NS W/KCL 20MEQ 20 MEQ/1,000 ML BAG IV SCH ×2 (07:18→16:00)
[2019-04-14] MEDS ORDERED: Ringers Lactate 1,000 ML IV ONE (10:32)
[2019-04-14] MEDS ORDERED: BUPIVACA 0.5%/EPI 0.0005%/PF 30 ML VIAL ONE (10:38)
[2019-04-14] MEDS ORDERED: FENTANYL CITR 100 MCG/2 ML ONE (10:51)
[2019-04-14] MEDS ORDERED: MIDAZOLAM HCL 2 MG/2 ML INJ ONE (10:51)
[2019-04-14] MEDS ORDERED: propofoL 200 MG/20 ML VIAL IV ONE (10:51)
[2019-04-14] MEDS ORDERED: dexAMETHasone 10 MG/ML VIAL ONE (10:52)
[2019-04-14] MEDS ORDERED: ROCURONIUM 50 MG/5 ML VIAL IV ONE (10:52)
[2019-04-14] MEDS ORDERED: LIDOCAINE 2% MPF 5 ML VIAL ONE (10:52)
[2019-04-14] MEDS ORDERED: MORPHINE 10 MG/ML VIAL ONE (11:27)
--- NOTE | 2019-04-14 11:42 | P.OP ---
Pre-Op Diagnosis: Recurrent acute tonsillitis, Chronic tonsillitis, Other ( Recurrence of tonsillitis following peritonsillar abscess) Post-Op Diagnosis: Recurrent acute tonsillitis, Chronic tonsillitis Procedure: Tonsillectomy Anesthesia: Other (GA via ETT) Fluids/ Blood products: Other (Crystalloid 400ml) Estimated blood loss: Other (<10ml) Specimen: Other (both tonsils) Complications: None Indication: Patient persistent issues in spite of good medical management. Details of Operation: The patient was brought to the operating room and placed under general anesthesia via endotracheal tube. The head of bed was turned 90 degrees. A Shoulder roll was placed and the neck extended. A head drape was applied. The McIvor mouth gag was placed and suspended from the Harley stand. The oxygen concentrate was confirmed with the bdr and was less than forty percent. Weight-based dexamethasone was administered by the bdr. The soft palate was palpated and there was no submucous cleft. A red rubber catheter was placed in the nose and secured to retract the soft palate. The tonsils were noted to be large and inflammed and worse on the left. The left tonsil was grasped with a straight Allis clamp. The bovie electocautery was used to incision the mucosa over the anterior pillar and identify the tonsillar capsule. The tonsil was dissected using cautery and blunt dissection until free from soft tissue attachments. A tonsil ball was placed to aid hemostasis. The tonsil was scarred consistent with recent abscess The right tonsil was removed in a similar manner. The laryngeal mirror was used to visualize the nasopharynx. The adenoid size was minimal. The adenoids were not removed . Hemostasis was achieved using packing and cautery as needed. Blood loss was minimal. All packing was removed. The tonsillar fossae were injected with 0.5% Marcaine with epinephrine. A total of 3 mL was used. A Salum sump orogastric tube was used to decompress the stomach. The red rubber catheter was removed and used to suction the nasopharynx and nasal cavity. The mouth gag was removed; there was no evidence of injury to the lips, teeth or tongue. The mandible was mobile. Disposition: The patient was then awakened from anesthesia and taken to the recovery room in stable condition.
[2019-04-14] MEDS ORDERED: ONDANSETRON 4 MG/2 ML VIAL ONE (11:52)
[2019-04-14] MEDS: HYDROMORPHONE HCL 1 MG/ML INJ ONE ×4 (11:53→12:08)
[2019-04-14] MEDS ORDERED: HYDROCOD 2.5mg-ACETAMIN 108mg/5mL Soln PO PRN (11:57)
[2019-04-14 12:14] VITALS: BP 128/77; TEMP 97.7; O2SAT 97
--- NOTE | 2019-04-14 19:07 | HP ---
Date of Admission: 04/13/2019 History Of Present Illness: The patient is well know to me from admission during the week of Mar 26 when she was treated for left peritonsillar abscess with needle aspiration and observed with IV Antibiotics and steroids, then discharged on Wednesday. On Wednesday evening, she had recurrence of her symptoms. She underwent a formal incision and drainage of the left superior peritonsillar abscess on the following Wednesday, March 27; she had slow improvement of her symptoms and was discharged from the hospital on March 30 with oral Augmentin. She did well for approximately 13-14 days but immediately upon finishing her oral antibiotic, she began to have worsening and recurrence of her sore throat with some mild left ear pain. Due to the symptoms, the decision was made. Options were discussed with the patient. Decision was made for admission for IV therapy and plan for tonsillectomy. The patient was admitted directly from the clinic for this treatment plan. Allergies: NO KNOWN DRUG ALLERGIES. Home Medications: Augmentin, oral contraceptive, and venlafaxine. Past Surgical History: Peritonsillar abscess, section. Family History: Hypertension in her mother. Social History: Nonsmoker. Rare alcohol use. Physical Examination: The patient is in no acute distress. She is alert and oriented. She has no trismus. The left tonsil is mildly swollen without active clinical evidence of peritonsillar abscess and without deviation of the uvula. Other head and neck exam are unremarkable. Admission Laboratory Data: At this time include a normal CBC, normal chemistry , and negative urine test. No imaging was performed associated with this hospitalization. Assessment: Failed outpatient therapy, history of peritonsillar abscess, and early recurrence of symptoms warranting tonsillectomy. Plan: We will place patient under observation status. Treat her with IV antibiotics, IV steroids, and IV fluids with plan for tonsillectomy in the morning. SUKHWINDER/PERRI Voice ID: [id number] JEANIE
[2019-04-14] MEDS ORDERED: CLINDAMYCIN INJ 900 MG in NA CHLORIDE 0.9% 50 ML IV SCH (19:35)
[2019-04-14] MEDS ORDERED: dexAMETHasone 10 MG/ML VIAL IV SCH (19:35)
== END 2019-04-14 16:21 | disposition home or self-care (01) ==
LOC: 2ND 18:42
PROVIDERS: ADMIT Otolaryngology; ATTEND Otolaryngology
PROC: 0CTPXZZ Resection of Tonsils, External Approach (ICD-10-PCS; principal; 2019-04-14 13:00)
DX: J03.91 Acute recurrent tonsillitis, unspecified (principal); J35.01 Chronic tonsillitis
CPT/HCPCS: 85025; 80048; 36415; 81025; 88304; 42826; J2704; J2250; J3010; J1100 ×4; J1170 ×2; G0378 ×4; J7120; J2405; G0379